=== PATIENT | female | born 1950 | race Caucasian/White ===

== ENCOUNTER 2020-08-24 08:52 | Outpatient (RCR) | payer MEDICARE, OTHER, SELFPAY ==
--- NOTE | 2020-08-24 10:07 | PTOPEVAL ---
Thank you for referring Radha Escoto to [facility].? The patient is scheduled to be seen for therapy? ____x/week for ___ weeks. Please review, sign, date and return this plan of care SABRA. I agree with and certify that the following plan of care is medically necessary. Referring Physician Date Admitting Provider: Attending Provider: Lorna Armenta, DIRECT SUPPORT SPECIALIST Referring Provider: *PT Outpatient Evaluation Start: 08/24/20 09:04 Freq: Status: Active Protocol: Document 08/24/20 09:05 [facility] (Rec: 08/24/20 10:07 [facility] [id number]) Therapy Assessment Status Assessment Status Assessment Status Evaluation Evaluation Information Problem Diagnosis bilateral knee oa, R hip pain Onset 07/12/20 Additional Evaluation Detail LEFS = 36% functionally declined Subjective Information patient reports she has had Query Text:As Reported By Patient/ pain in the R hip for years. Family she reports she has had pain in the bilateral knees for about 1-2 months. she reports she has a meniscus tear in each knee. she reports she has continuous pain in the bilateral knees. she reports she has had pain from the R hip for years. she reports she has increased pain with standing and walking. she reports her pain is not worse in the morning or evenings particularly. she reports she has no tried any new meds. she reports she is not planning on having surgery. she reports she did have an injection to the L knee. she reports no relief from the injection to the L knee. Prior Level of Function Comments Additional Prior Level of Function prior to june, patient Comments reports she had no issues with her knees. she reports no injury, but sudde pain one day waking up. she reports she has had pain in the bilateral knee since. Pain Assessment Timing of Pain Assessment Timing of Pain Assessment Assessment Pain Scale Pain Scale Used Numeric (1 - 10) Self Report Pain Assessment Right Hip(s) Reported Pain Level 7 Right Knee(s) Rep
== END 2020-09-01 13:55 | disposition home or self-care (01) ==
LOC: CHSPT 08:52
PROVIDERS: PCP Family Medicine; Visit Provider Nurse Practitioner Family
DX: M17.12 Unilateral primary osteoarthritis, left knee (principal); M70.61 Trochanteric bursitis, right hip; R26.89 Other abnormalities of gait and mobility; M47.818 Spondylosis without myelopathy or radiculopathy, sacral and sacrococcygeal region; M17.11 Unilateral primary osteoarthritis, right knee
CPT/HCPCS: 97014; 97110; 97161; G0283

== ENCOUNTER 2021-03-21 08:03 | Outpatient (RCR) | payer MEDICARE, OTHER, SELFPAY ==
--- NOTE | 2021-03-21 08:50 | PTOPEVAL ---
Thank you for referring Radha Escoto to [facility].? The patient is scheduled to be seen for therapy? __3__x/week for 12 visits. Please review, sign, date and return this plan of care SABRA. I agree with and certify that the following plan of care is medically necessary. Referring Physician Date Admitting Provider: Attending Provider: Geetha Zuluaga Referring Provider: *PT Outpatient Evaluation Start: 03/21/21 07:58 Freq: Status: Active Protocol: Document 03/21/21 07:58 [facility] (Rec: 03/21/21 08:41 [email or web address] [id number]) Therapy Assessment Status Assessment Status Assessment Status Evaluation Evaluation Information Problem Diagnosis neurogenic claudication due to lumbar spinal stenosis Onset 03/11/21 Additional Evaluation Detail Oswesty Back Index= 48% limitation Subjective Information Pt. reports she underwent back Query Text:As Reported By Patient/ sugery last month, having a Family laminectomy of the 4th and 5th lumbar verterbrae. She reports about 2 weeks ago she started noticing pain developing in the left buttock and down to the mid calf of the left l.e. She reports that she is currently taking gabipentin and ibuprofen for pain, which helps slightly. She reports pain intensity can vary. She states that pain is most notable with standing and walking. She reports that she can only stand for about 10-15 minutes due to back pain . She reports that her goal for therapy is to reduce her back and leg pain and be able to stand for longer. 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
--- NOTE | 2021-05-25 12:29 | PCPTNOTE ---
Mrs. Escoto attended a total of 6 treatment sessions from 03/21/21 to 04/06/21. She has failed to return to the [facility]. Pt. was contacted via telephone and stated that she is doing better and request discharge. Refer to last Rx note for discharge status.
== END 2021-04-06 13:49 | disposition home or self-care (01) ==
LOC: CHSPT 08:03
PROVIDERS: PCP Family Medicine
DX: M48.062 Spinal stenosis, lumbar region with neurogenic claudication (principal)
CPT/HCPCS: 97014; 97110; 97161; G0283

== ENCOUNTER 2024-05-12 10:53 | Outpatient (RCR) | payer MEDICARE, OTHER, SELFPAY ==
--- NOTE | 2024-05-12 12:00 | BUPTOPEVAL1 ---
Assessment and note entered by Adam Zhou Evaluation Information Assessment Status Evaluation ICD-10 Condition Codes (PT) Pain in Thoracic Spine M54.6 Onset 04/16/24 Subjective Information Pt. reports that she has been having mid back pain for about 4 weeks. She recalls no incident, just woke with pain. She describes pain between the shoulder blades. She states that pain is increased with reaching away from her body or sitting in one position. She states that long periods of driving will increase her pain. Pain does not affect her sleep at night. She states she has pain that radiates closer to the right shoulder blade. She states that her goal is to reduce her mid back pain. Reported Pain Level Pain Score 3: Self Report Assessment PT Clinical Summary Pt. is a 73 year old female who enters the clinic due to developed mid back pain. She presents with impaired c-spine mobility, impaired postural awareness, periscapular weakness and pain on this date. Continued skilled PT is indicated in order to improve these areas to allow the pt. to be able to complete all IADL's with improved comfort. Plan of Care Interventions Electrical Stimulation,Hot Pack/Cold Pack,Manual Therapy,Mechanical Traction,Neuro Re-education, Therapeutic Activities,Therapeutic Exercise,Self- Care/Home Management PT Services Indicated Yes Treatment Frequency and 2x/week x 10 visits Duration These treatments will address the objective and functional deficits as defined above. The patient will be advanced safely and appropriately in order for the patient to progress towards his/her prior level of function. Additional exercises will be introduced and as well as a comprehensive home exercise program upon discharge, if needed, ?to ensure carryover of functional gains achieved in the clinic. This treatment plan has been reviewed and agreement upon by the patient.
--- NOTE | 2024-06-04 10:29 | OPREHPOC ---
Outpatient Therapy Plan of Care This is a Multidisciplinary Plan of Care that may contain components documented by all disciplines (PT, OT, and ST.) PT Problem 1 PT Problem #1 Knowledge Deficit PT Goal 1 Goal / Goal Update Pt. will be independent with a HEP addressing strength and postural awareness Target Visit 2 Progress Met PT Problem 2 PT Problem #2 Impaired Range of Motion PT Goal 1 Goal / Goal Update Pt. will increase right c-spine rotation to 75 degrees and right lateral flexion to 40 degrees Target Visit 10 Progress Not Met PT Problem 3 PT Problem #3 Impaired Functional Mobility PT Goal 1 Goal / Goal Update Pt. will present with less than 20% limitation on the Oswestry indicating significant functional improvement Target Visit 10 Progress Not Met
--- NOTE | 2024-06-04 10:29 | PTOPPROG ---
Assessment and note entered by Josefa Smiley, PT Evaluation Information Assessment Status Progress ICD-10 Condition Codes (PT) Pain in Thoracic Spine M54.6 Onset 04/16/24 Subjective Information Lucila Escoto reports the pain in the middle of her back has gone away after she stopped vomiting last week while having a gall bladder attack. She believes the pain may have been from her gall bladder and she is seeing her PCP on 06/09/24 for a follow up. She would like to hold on PT until she follows up. She does still report neck pain but has arthritis and notes this pain is usually present and worse with excessive movements of her upper extremities past shoulder height and with weather changes. Assessment PT Clinical Summary Lucila Escoto has completed 4 skilled PT visits for thoracic back pain. She reports the pain in the middle of her back has gone away after she stopped vomiting last week while having a gall bladder attack. She believes the pain may have been from her gall bladder and she is seeing her PCP on 06/09/24 for a follow up. She would like to hold on PT until she follows up. She does still report neck pain but has arthritis and notes this pain is usually present and worse with excessive movements of her upper extremities past shoulder height and with weather changes. She demonstrates no overall change in cervical AROM this date compared to her initial evaluation and she is still having pain with right cervical spurling's test. She does not have tenderness in her thoracic spine anymore. We will put PT on hold until her PCP follow up. Plan of Care Interventions Electrical Stimulation,Hot Pack/Cold Pack,Manual Therapy,Mechanical Traction,Neuro Re-education, Therapeutic Activities,Therapeutic Exercise,Self- Care/Home Management PT Services Indicated No Treatment Frequency and On hold until MD follow up on 06/09/24 Duration These treatments will address the objective and functional deficits as defined above. The patient will be advanced safely and appropriately in order for the patient to progress towards his/her prior level of function. Additional exercises will be introduced and as well as a comprehensive home exercise program upon discharge, if needed, ?to ensure carryover of functional gains achieved in the clinic. This treatment plan has been reviewed and agreement upon by the patient.
== END 2024-06-04 20:00 | disposition home or self-care (01) ==
LOC: CHSPT 10:53
PROVIDERS: Visit Provider Family Medicine
DX: M54.6 Pain in thoracic spine (principal)
CPT/HCPCS: 97014; 97110; 97140; 97161; G0283

== ENCOUNTER 2024-06-23 11:34 | Outpatient (CLI) | payer MEDICARE, OTHER, SELFPAY ==
--- NOTE | ~2024-06-23 | XR_ITS ---
XR hand LT min 3V Ordering provider: Pantera Baron MD History: . M65.332 - Trigger finger, left middle finger . Comparison: None. FINDINGS: BONES: No definite acute fracture or dislocation. Sclerotic changes in the scaphoid which may indicat e healing fracture. JOINT SPACES: Narrowing of the proximal and distal interphalangeal joints SOFT TISSUES: Unremarkable. IMPRESSION: No definite acute osseous abnormality left hand. Highly suggestive healing fractures in the scaphoid. Polyarticular osteoarthritic changes. Reviewed, dictated and finalized at location A.
--- OUTSIDE RECORDS SUMMARY | 2024-06-23 13:49 | XMS_ITS | Clinical Summary ---
Author Organization [facility] Address [facility] [place] [address] Care Team Providers Care Physician/Allergy/Immunology Name Role Phone Prashanth Monsalve MD Primary Care Provider Allergies No known active allergies Medications benazepril 20 MG tablet Take 1 tablet (20 mg total) by mouth 2 (two) times a day. 7 Active ezetimibe-simva statin 10-40 MG tablet Take 1 tablet by mouth nightly at bedtime. 8 Active hydrochlorothia zide 12.5 MG tablet Take 1 tablet (12.5 mg total) by mouth daily. 8 Active ipratropium 0.03 % nasal spray 1 spray by Nasal route 2 (two) times daily as needed. 8 Active metoprolol succinate ER 25 MG 24 hr tablet Take 1 tablet (25 mg total) by mouth daily. 8 Active omeprazole 20 MG capsule Take 1 capsule (20 mg total) by mouth daily. 8 Active venlafaxine XR 75 MG 24 hr capsule Take 1 capsule (75 mg total) by mouth daily. 8 Active multi vitamin/mineral s tablet Take 1 tablet by mouth daily. Active calcium carb-cholecalci ferol 250-125 MG-UNIT tablet Take 1 tablet by mouth daily. Active FREESTYLE LITE test strip 2 Active Lancets (FREESTYLE) lancets 2 Active GLIPIZIDE XL 10 MG 24 hr tablet daily with breakfast. 3 Active OZEMPIC, 0.25 OR 0.5 MG/DOSE, 2 MG/3ML injection (PEN) 4 Active ibuprofen 400 MG tablet Take 1 tablet (400 mg total) by mouth every 6 (six) hours as needed for Pain. 06/09/19 25 Discontinu ed(Error) JANUVIA 50 MG tablet daily. 3 06/09/19 25 Discontinu ed(Error) Active Problems Problem Noted Date Diagnosed Date Pain and swelling of left lower leg 09/01/2022 Aftercare following left knee joint replacement surgery 07/28/2022 Status post total left knee replacement 07/18/19 Spinal stenosis of lumbar re gion with neurogenic claudication 12/01/2020 Strain of gluteus medius of right lower extremity, subsequent encounter 10/05/2020 Aftercare following surgery 10/05/2020 Acute tear medial meniscus, left, subsequent enc ounter 09/02/2020 SI joint arthritis 08/19/2020 Antalgic gait 08/19/2020 Trochanteric bursitis of right hip 08/19/2020 Primary osteoarthritis of left knee 08/19/2020 Primary osteoarthritis of right knee 08/19/2020 Abdominal pain 03/07/2019 Encounters Date Type Department Care Team Description 06/09/2024 Travel 05/15/2024 1:11 PM WAITER/WAITRESS TAVERN - 05/15/2024 11:59 PM [facility] Hospital Encounter [place] [facility] [address] [place] [address] Prashanth Monsalve MD Discharge Disposition: Home or Self Care (Routine Discharge) 05/15/2024 Travel 05/06/2024 12:21 PM WAITER/WAITRESS TAVERN - 05/06/2024 11:59 PM [facility] Hospital Encounter [place] [facility] [address] [place] [address] Prashanth Monsalve MD Discharge Disposition: Home or Self Care (Routine Discharge) 05/06/2024 Travel 04/23/2024 9:34 AM WAITER/WAITRESS TAVERN - 04/23/2024 11:59 PM [facility] Hospital Encounter [place] [facility] [address] [place] [address] Prashanth Monsalve MD Discharge Disposition: Home or Self Care (Routine Discharge) 04/23/2024 Travel from Last 3 Months Immunizations Name Administration Dates Next Due Tdap (Boostrix) 03/14/2020 Family History Medical History Relation Comments No Known Problems Brother 1 No Known Problems Brother 2 Cancer Brother 3 Kidney Disease Brother 4 Cancer Father Cancer Mother Cancer Sister Relation Status Comments Brother 1 Alive Brother 2 Alive Brother 3 Brother 4 Father Mother Sister Social History Tobacco Use Types Packs/Day Years Used Date Smoking Tobacco: Never Smokeless Tobacco: Never Alcohol Use Standard Drinks/Week Comments Yes 0 (1 standard drink = 0.6 oz pur e alcohol) rarely AUDIT-C Answer Date Recorded Frequency of Alcohol Consumption Never 03/07/2019 Average Number of Drinks Not on file 019 Frequency of Binge Drinking Not on file 02/15 Comments No Sex and Gender Information Value Date Recorded Sex Assigned at Female 05/06/2024 12:20 PM WAITER/WAITRESS TAVERN Legal Sex Female 5:49 PM WAITER/WAITRESS TAVERN Gender Identity Not on file Sexual Orientation Not on file Last Filed Vital Signs Vital Sign Reading Time Taken Comments Blood Pressure 116/49 07/18/2022 8:19 AM CDT Pulse 63 07/18/2022 8:19 AM CDT Temperature 36.5 C (97.7 F) 07/18/2022 4:35 AM CDT Respiratory Rate 16 07/18/2022 4:35 AM CDT Oxygen Saturation 94% 07/18/2022 4:35 AM CDT Inhaled Oxygen Concentration - - Weight 95.3 kg (210 lb) 06/09/2024 2:47 PM WAITER/WAITRESS TAVERN Height 165.1 cm (5' 5 ) 06/09/2024 2:47 PM WAITER/WAITRESS TAVERN Body Mass Index 34.95 06/09/2024 2:47 PM WAITER/WAITRESS TAVERN Plan of Treatment Upcoming Encounters Date Type Department Care Team (Late st Contact Info) Description 06/24/2024 8:00 AM CDT Hospital Encounter [place] [address] [place] [address] Andi Sweet MD [address] [place] [phone] 06/24/2024 8:00 AM CDT Anesthesia Event [place] [facility] [address] [place] [address] Gayle Carson CRNA [address] [place] [address] 06/24/2024 8:00 AM CDT - 06/24/2024 8:34 AM CDT Surgery [place] [facility] [address] [place] [address] Andi Sweet MD [address] [place] [phone] COLONOSCOPY Scheduled Procedures Name Priority Associated Diagnoses Date/Ti me COLONOSCOPY DIAGNOSTIC WITH/WITHOUT SPECIMEN BRUSH/WASH family history of colon cancer 06/24/2024 8:00 AM CDT Health Maintenance Due Date Last Done Comments Colorectal Cancer Screening Colonoscopy (10 Years) 1950 Hepatitis C 1968 Annual Medicare Wellness Visit 11/08/2015 Dexa Scan (General) 11/08/2015 Pneumococcal Vaccine: 65+ Years (1 of 1 - PCV) 11/08/2015 COVID-19 Vaccine ( season) 2023 11/04/2021, 03/12/2021, 07/16/2020, Additional history exists Influenza Adult (#1) 2024 12/23/2020, 12/20/2019, 01/10/2019, Additional history exists RSV Immunization or 60+ Years (1 - 1-dose 75+ series) 2025 Mammogram Screening 05/15/2026 05/15/2024, 2 DTaP, Tdap and Td Vaccines (2 - Td or Tdap) 03/14/2030 03/14/2020 Zoster Vaccines Completed 11/10/2018, 09/15/2018 Meningococcal B Vaccine Aged Out No l onger eligible based on patient's age to complete this topic Meningococcal Vaccine Aged Out No masood valerie eligible based on patient's age to complete this topic RSV Immunizations Under 20 Months Aged Out No longer eligible based on patient's age to complete this topic Goals Goal Patient Goal Type Associated Problems Recent Progress Patient-Stated? Author Patient will return to prior living situation and remain independent in ADLs upon discharge from hospital Lifestyle No Susan Fxo RN Medical Devices Implanted Type Area Transitional Living Specialist Device Identifier Shelf Expiration Date Model / Serial / Lot Cement Simplex Hv W/Gentamicin - [id number] Implanted:Qty: 1 on 07/17/2022 by Dustin Harrington MD at [facility] Cement Implant Left: Knee [employer] - DIV KAZ DANIEL 07/15/2023 [id number] D Cement Simplex Hv W/Gentamicin - [id number] Implanted:Qty: 1 on 07/17/2022 by Dustin Harrington MD at [facility] Cement Implant Left: Knee [employer] 07/15/2023 [id number] D Attune Femoral Cruciate Retaining Implanted:Qty: 1 on 07/17/2022 by Dustin Harrington MD at [facility] Left: Knee [employer] - A ANASTASIA & ANASTASIA 04/15/2032 1504-00-1 06 / / [id number] Attune Patella Medialized Dome Implanted:Qty: 1 on 07/17/2022 by Dustin Harrington MD at [facility] Left: Knee [employer] - A [employer]ST[employer]IA [employer] 05/16/2027 1518-20-0 35 / / [id number] Attune Knee System Revision Tibial Base Implanted:Qty: 1 on 07/17/2022 by Dustin Harrington MD at [facility] Left: Knee [employer] - A [employer]NAST[employer]IA [employer] ANA[employer]IA [id number] 01/14/2032 1506-40-0 06 / / [id number] Attune Knee System Revision Cemented Stem Implanted:Qty: 1 on 07/17/2022 by Dustin Harrington MD at [facility] Left: Knee [employer] - A [employer]ST[employer]IA [employer] ANA[employer]IA 11/14/2031 1512-14-0 50 / / [id number] Attune Knee System Tibial Insert Fixed Bearing Medial Stabilized Implanted:Qty: 1 on 07/17/2022 by Dustin Harrington MD at [facility] Left: Knee [employer] - A [employer]IA [employer] ANA[employer]IA 04/15/2030 1518-20-6 08 / / [id number] Procedures Procedure Name Priority Date/Time Associated Diagnosis Comments MG SCREENING W KOBI PHUC DIGI Routine 05/15/2024 1:58 PM WAITER/WAITRESS TAVERN Visit for screening mammogram XR THOR SPINE+SWIMMERS Routine 05/06/2024 12:41 PM WAITER/WAITRESS TAVERN Thoracic back pain US ABD LIMITED Routine 04/23/2024 10:18 AM WAITER/WAITRESS TAVERN Elevated liver enzymes from Last 3 Months Results * MG SCREENING W KOBI PHUC DIGI (05/15/2024 1:58 PM WAITER/WAITRESS TAVERN) Anatomical Region Laterality Modality Breast Bilateral Mammography 05/15/2024 4:23 PM WAITER/WAITRESS TAVERN Impressions 05/15/2024 4:23 PM WAITER/WAITRESS TAVERN IMPRESSION: No suspicious change since the previous exams. Recommendation: 1: Routine Screening Bilateral in 1 Year Assessment: ACR BI-RADS 2 - BENIGN FINDING(S) Ordered By: PRASHANTH MONSALVE Interpreted By: Gonzales Morfin MD, 05/15/2024 4:23 PM Narrative 05/15/2024 4:23 PM WAITER/WAITRESS TAVERN [address] [place] [id number] Examination: Digital screening mammogram with CAD. Clinical history: Asymptomatic patient presents for routine screening. Comparison: 08/09/2021, 08/29/2017, 08/10/2016, 06/11/2015. Technique: Bilateral digital mammograms. The exam was interpreted with the use of a computer-aided detection (CAD) system. Additional 3-D tomosynthesis images were acquired. Tissue density: There are scattered areas of fibroglandular density. Findings: The breast tissue contains scattered fibroglandular densities. Benign-appearing calcification noted. No suspicious mass, microcalcification or area of architectural distortion can be identified. From a mammographic standpoint, routine followup in one year would seem adequate. us Prashanth Monsalve MD MAMMO Final Resul t * XR THOR SPINE+SWIMMERS (05/06/2024 12:41 PM WAITER/WAITRESS TAVERN) Anatomical Region Laterality Modality Spine Radiographic Reena ging 05/07/2024 6:26 AM WAITER/WAITRESS TAVERN Impressions 05/07/2024 6:28 AM WAITER/WAITRESS TAVERN IMPRESSION: 1. Mild multilevel degenerative disc disease of the mid to lower thoracic spine but no radiographic evidence is seen to suggest acute fracture or traumatic subluxation. If there is strong clinical concern for an acute fracture, cross-sectional imaging should be considered. 2. Right carotid atherosclerotic calcifications. Referred By: Interpreted By: Pawel Cody DO, 05/07/2024 6:26 AM Narrative 05/07/2024 6:28 AM WAITER/WAITRESS TAVERN [address] [place] [address] Examination: XR THOR SPINE+SWIMMERS Exam time: 05/06/2024 12:33 PM Clinical history: Thoracic back pain. Hurt back 3-4 weeks ago with pain in the upper back between the shoulder blades. Comparison: Two-view chest radiograph 02/11/2021. Technique: Upright AP, lateral, and swimmer's views of the thoracic spine. Findings: Thoracic osseous alignments are maintained. Facet alignments are maintained. Mild multilevel degenerative disc disease affects the mid to lower thoracic spine. Degenerative arthritis affects the lower cervical spine. Thoracic vertebral body heights are maintained. No radiographic evidence is seen to suggest acute fracture or traumatic subluxation of the lumbar spine. There are atherosclerotic calcifications of the thoracic aorta. Right carotid atherosclerotic calcifications are noted. Procedure Note Pawel Cody DO - 05/07/[address] [place] [address] Examination: XR THOR SPINE+SWIMMERS Exam time: 05/06/2024 12:33 PM Clinical history: Thoracic back pain. Hurt back 3-4 weeks ago with painin the upper back between the shoulder blades. Comparison: Two-view chest radiograph 02/11/2021. Technique: Upright AP, lateral, and swimmer's views of the thoracicspine. Findings: Thoracic osseous alignments are maintained. Facet alignments aremaintained. Mild multilevel degenerative disc disease affects the mid tolower thoracic spine. Degenerative arthritis affects the lower cervicalspine. Thoracic vertebral body heights are maintained. No radiographicevidence is seen to suggest acute fracture or traumatic subluxation of thelumbar spine. There are atherosclerotic calcifications of the thoracicaorta. Right carotid atherosclerotic calcifications are noted. IMPRESSION: 1. Mild multilevel degenerative disc disease of the mid to lower thoracicspine but no radiographic evidence is seen to suggest acute fracture ortraumatic subluxation. If there is strong clinical concern for an acutefracture, cross-sectional imaging should be considered. 2. Right carotid atherosclerotic calcifications. Referred By: Interpreted By: Pawel Cody DO, 05/07/2024 6:26 AM us Prashanth Monsalve MD GENERAL IMAGING Final Resul t * US ABD LIMITED (04/23/2024 10:18 AM WAITER/WAITRESS TAVERN) Anatomical Region Laterality Modality Abdomen Ultrasound 04/23/2024 10:4 7 AM WAITER/WAITRESS TAVERN Impressions 04/23/2024 10:50 AM WAITER/WAITRESS TAVERN IMPRESSION: 1. Redemonstrated hepatic steatosis and left lobe cyst. 2. Unremarkable sonographic appearance of the gallbladder. Ordered By: PRASHANTH MONSALVE Interpreted By: Gnozales Morfin MD, 04/23/2024 10:47 AM Narrative 04/23/2024 10:50 AM WAITER/WAITRESS TAVERN [address] [place] [address] Examination: Ultrasound of the liver and gallbladder. Exam time: 1005 hours. Clinical history: Elevated LFTs. Comparison: CT of the abdomen and pelvis, 05/25/2022. Technique: Grayscale and color Doppler images including spectral analysis. Findings: The gallbladder appears unremarkable. There are no gallstones. Wall thickness appears normal. There is no pericholecystic fluid. Sonographic Mckeon sign is reported as negative. There is no intra or extrahepatic biliary ductal dilatation. The common duct measures 5 mm. Sections through the liver demonstrate generalized increase in and coarsening of its echotexture, compatible with steatosis, concordant with CT. 6.4 cm in greatest dimension simple cyst in the left lobe is concordant with CT and requires no further workup or surveillance. No solid hepatic mass is demonstrated. Normal-appearing color flow and spectrum are documented in the portal vein on Doppler. Patency of the hepatic veins is also demonstrated. Limited sections through the pancreas and right kidney are unremarkable. No free fluid is seen. Procedure Note Goznales Morfin MD - 04/23/2024 [place] [id number] [facility] [place] [address] Examination: Ultrasound of the liver and gallbladder. Exam time: 1005 hours. Clinical history: Elevated LFTs. Comparison: CT of the abdomen and pelvis, 05/25/2022. Technique: Grayscale and color Doppler images including spectralanalysis. Findings: The gallbladder appears unremarkable. There are no gallstones.Wall thickness appears normal. There is no pericholecystic fluid.Sonographic Mckeon sign is reported as negative. There is no intra orextrahepatic biliary ductal dilatation. The common duct measures 5 mm.Sections through the liver demonstrate generalized increase in andcoarsening of its echotexture, compatible with steatosis, concordant withCT. 6.4 cm in greatest dimension simple cyst in the left lobe isconcordant with CT and requires no further workup or surveillance. Nosolid hepatic mass is demonstrated. Normal-appearing color flow andspectrum are documented in the portal vein on Doppler. Patency of thehepatic veins is also demonstrated. Limited sections through the pancreasand right kidney are unremarkable. No free fluid is seen. IMPRESSION: 1. Redemonstrated hepatic steatosis and left lobe cyst. 2. Unremarkable sonographic appearance of the gallbladder. Ordered By: PRASHANTH MONSALVE Interpreted By: Gonzales Morfin MD, 04/23/2024 10:47 AM us Prashanth Monsalve MD ULTRASOUND Final Resul t from Last 3 Months Insurance [employer] MEDICARE Advance Directives * Full Code (Latest Code Status on File) Date Activated Date Inactivated Comments 07/17/2022 2:29 PM 07/18/2022 1:45 PM * Full Code Date Activated Date Inactivated Comments 03/09/2019 8:40 AM 03/09/2019 2:55 PM Care Teams Physician/Allergy/Immunology Relationship Specialty Start Date End Date Prashanth Monsalve MD [address] [place] [phone] PCP - General FAMILY PRACTICE 03/07/19
--- OUTSIDE RECORDS SUMMARY | 2024-06-23 13:49 | XMS_ITS | Encounter Summary ---
Author Organization [facility] Address formerly [facility] [place] [address] Care Team Providers Care Bobbin Sorter Name Role Phone Prashanth Isaacs MD Primary Care Provider Encounter Details Date Type Department Care Team (Late st Contact Info) Description 09/21/2018 Abstract SFL CONVERSION [facility] [place] [address] , Generic Conversion, Social History Tobacco Use Types Packs/Day Years Used Date Smoking Tobacco: Never Assessed Comments Unknown Sex and Gender Information Value Date Recorded Sex Assigned at Female 05/06/2024 12:20 PM HANGERSMITH Legal Sex Female 5:49 PM HANGERSMITH Gender Identity Not on file Sexual Orientation Not on file documented as of this encounter Plan of Treatment Upcoming Encounters Date Type Department Care Team (Late st Contact Info) Description 06/24/2024 8:00 AM CDT Hospital Encounter [facility] [place] [address] Andi Sweet MD [address] [place] [phone] 06/24/2024 8:00 AM CDT Anesthesia [place] [address] Gayle Carson CRNA [address] [place] [address] 06/24/2024 8:00 AM CDT - 06/24/2024 8:34 AM CDT Surgery [facility] [place] [address] Andi Sweet MD [address] [facility] [place] [phone] COLONOSCOPY Scheduled Procedures Name Priority Associated Diagnoses Date/Ti me COLONOSCOPY DIAGNOSTIC WITH/WITHOUT SPECIMEN BRUSH/WASH family history of colon cancer 06/24/2024 8:00 AM CDT documented as of this encounter Visit Diagnoses Not on filedocumented in this encounter Additional Health Concerns Infection Onset Date Last Indicated Resolved Time COVID-19 Rule Out 09/19/2020 09/19/2020 09/20/2020 7:20 PM CDT COVID-19 Rule Out 02/25/2021 02/25/2021 02/25/2021 9:11 PM HANGERSMITH COVID-19 Rule Out 12/11/2021 12/11/2021 12/12/2021 7:12 PM CDT documented as of this encounter Care Teams Bobbin Sorter Relationship Specialty Start Date End Date Prashanth Isaacs MD [address] [place] [phone] PCP - General FAMILY PRACTICE 03/07/19 documented as of this encounter
== END 2024-06-23 11:35 | disposition home or self-care (01) ==
PROVIDERS: PCP Family Medicine; Visit Provider Plastic Surgery
DX: M65.332 Trigger finger, left middle finger (principal); M19.042 Primary osteoarthritis, left hand
CPT/HCPCS: 73130